=== PATIENT | male | born 1950 | race Caucasian/White ===

== ENCOUNTER 2022-08-30 08:43 | Observation (INO) ==
[2022-08-30] MEDS ORDERED: Aspirin 81 MG TAB.CHEW PO ONE (09:26)
[2022-08-30] MEDS ORDERED: Nitroglycerin 0.4 MG TAB.SUBL SL PRN (09:32)
[2022-08-30 09:44] LABS: Basophils % 0.4 %; Eosinophils # 0.1 K/mcL (0.0-0.6); Eosinophils % 1.4 %; Hematocrit 33.8 % (37.5-50.1); Hemoglobin 12.1 g/dL (12.9-16.9); Immature Granulocytes % 0.5 % (0-4); Lymphocytes # 0.7 K/mcL (0.6-4.6); Lymphocytes % 6.6 %; Mean Corpuscular HGB Conc 35.8 g/dL (31.6-35.5); Mean Corpuscular Hemoglobin 33.9 pg (28.0-33.3); Mean Corpuscular Volume 94.7 fL (83.0-100.0); Mean Platelet Volume 9.8 fL (9.4-12.4); Monocytes % 9.3 %; Neutrophils # 8.4 K/mcL (1.6-8.9); Platelet Count 192 K/mcL (140-400); Red Blood Count 3.57 M/mcL (4.19-5.50); Red Cell Distribution Width 10.9 % (11.5-14.5); Segmented Neutrophils % 81.8 %; White Blood Count 10.3 K/mcL (4.3-11.1)
[2022-08-30] MEDS ORDERED: Iopamidol - 370 500 ML MLS IVP ONE (10:04)
[2022-08-30] MEDS ORDERED: *HR* Etomidate 20 MG/10 ML AMPUL IVP ONE ×2 (10:15→16:52)
[2022-08-30] MEDS ORDERED: *HR* Heparin 5,000 UNIT/ML VIAL IVP ONE (10:16)
[2022-08-30] MEDS ORDERED: *HR* Heparin 5,000 UNIT/ML VIAL IVP PRN ×2 (10:16)
[2022-08-30 10:17] LABS: Albumin 4.4 g/dL (3.5-5.7); Albumin/Globulin Ratio 1.8 (1.1-2.2); Bilirubin,Direct 0.1 mg/dL (0.0-0.2); Bilirubin,Indirect 0.6 mg/dL (0.0-1.0); Bilirubin,Total 0.7 mg/dL (0.3-1.0); Calcium 9.5 mg/dL (8.6-10.3); Globulin 2.5 g/dL (2.4-3.5); Magnesium 2.3 mg/dL (1.6-2.6); Potassium 3.3 mEq/L (3.5-5.1); Thyroid Stimulating Hormone 1.284 mcIU/mL (0.340-5.600); Total Protein 6.9 g/dL (6.4-8.9); Troponin I 0.08 ng/mL (< 0.04)
[2022-08-30] MEDS: Heparin 25,000UNIT/250ML 1/2NS 25,000 UNIT/250 ML IV.SOLN IVC SCH (10:42)
[2022-08-30] MEDS ORDERED: Naloxone 0.4 MG/ML INJ IVP PRN (12:42)
[2022-08-30] MEDS ORDERED: *HR* Dextrose 50 % in Water (Syg) 50 ML SYRINGE IVP PRN (13:35)
[2022-08-30] MEDS ORDERED: Dextrose Gel 15 GM/37.5 ML TUBE PO PRN ×2 (13:35)
[2022-08-30] MEDS ORDERED: D5% in Water 1,000 ML IVC PRN (13:35)
[2022-08-30] MEDS ORDERED: traZODone 50 MG TABLET PO PRN (13:43)
[2022-08-30] MEDS ORDERED: 0.9 % Sodium Chloride 1,000 ML IVC SCH (14:00)
[2022-08-30] MEDS: Insulin LISPRO 300 UNITS/3 ML VIAL SUBQ SCH (18:31)
[2022-08-30] MEDS ORDERED: Insulin LISPRO 300 UNITS/3 ML VIAL SUBQ SCH (21:00)
[2022-08-30] MEDS ORDERED: Melatonin 3 MG TABLET PO SCH (21:00)
[2022-08-30] MEDS ORDERED: Latanoprost 2.5 ML BOTTLE BOTH EYES SCH (21:00)
[2022-08-31 05:41] LABS: Basophils % 0.6 %; Eosinophils # 0.2 K/mcL (0.0-0.6); Eosinophils % 3.1 %; Hematocrit 26.2 % (37.5-50.1); Immature Granulocytes % 0.8 % (0-4); Lymphocytes # 0.9 K/mcL (0.6-4.6); Lymphocytes % 18.6 %; Mean Corpuscular HGB Conc 35.1 g/dL (31.6-35.5); Mean Corpuscular Hemoglobin 34.3 pg (28.0-33.3); Mean Corpuscular Volume 97.8 fL (83.0-100.0); Monocytes # 0.6 K/mcL (0.0-1.3); Monocytes % 11.2 %; Neutrophils # 3.2 K/mcL (1.6-8.9); Platelet Count 177 K/mcL (140-400); Red Blood Count 2.68 M/mcL (4.19-5.50); Red Cell Distribution Width 11.1 % (11.5-14.5); Segmented Neutrophils % 65.7 %
[2022-08-31 05:58] LABS: Hemoglobin 9.2 g/dL (12.9-16.9); White Blood Count 4.9 K/mcL (4.3-11.1)
[2022-08-31 06:09] LABS: Calcium 8.4 mg/dL (8.6-10.3); Chol/HDL Ratio 2.5 (0-4.9); Magnesium 2.2 mg/dL (1.6-2.6); Potassium 3.7 mEq/L (3.5-5.1); Troponin I 0.07 ng/mL (< 0.04)
[2022-08-31 06:15] LABS: Thyroid Stimulating Hormone 1.192 mcIU/mL (0.340-5.600)
[2022-08-31] MEDS: Insulin LISPRO 300 UNITS/3 ML VIAL SUBQ SCH ×2 (08:31→12:21)
[2022-08-31] MEDS ORDERED: Furosemide 20 MG TABLET PO SCH (09:00)
[2022-08-31] MEDS ORDERED: amLODIPine 5 MG TABLET PO SCH (09:00)
[2022-08-31] MEDS ORDERED: Aspirin Enteric Coated 81 MG Tablet PO SCH (09:00)
[2022-08-31] MEDS ORDERED: Dapagliflozin Propanediol [Farxiga] 10 MG Tablet PO SCH (09:00)
[2022-08-31] MEDS: Heparin 25,000UNIT/250ML 1/2NS 25,000 UNIT/250 ML IV.SOLN IVC SCH (10:01)
[2022-08-31 10:29] LABS: Hematocrit 27.5 % (37.5-50.1); Hemoglobin 9.6 g/dL (12.9-16.9)
[2022-08-31 11:19] VITALS: BP 131/79; PULSE 57; TEMP 97.5; O2SAT 98
[2022-08-31 13:30] LABS: INR 1.1; Prothrombin Time 12.1 Seconds (9.4-12.1)
[2022-08-31 14:47] LABS: Estimated Average Glucose 154 mg/dl
[2022-08-31] MEDS ORDERED: Warfarin perPT PO PRN (18:00)
[2022-08-31] MEDS ORDERED: *HR* Enoxaparin 100 MG/ML SYRINGE SQ SCH (18:00)
== END 2022-08-31 16:53 | disposition home or self-care (01) ==
LOC: 2ANU 08:43 → EMEROOARM 08:43 → 2ANU 13:44
PROVIDERS: ADMIT Internal Medicine; ATTEND Internal Medicine